=== PATIENT | male | born 1980 | race Caucasian/White ===

== ENCOUNTER 2023-10-19 08:14 | Outpatient (REF) | payer OTHER, SELFPAY ==
--- NOTE | ~2023-10-19 | US_ITS ---
EXAMINATION: US CHEST CLINICAL INFORMATION: Evaluate two immobile masses of chest next to sternum. COMPARISON: None available. TECHNIQUE: Real-time sonographic imaging of the anterior chest was performed in the area of concern by the manufacturing technologist. The acquired images have been uploaded into the electronic picture archive for review. FINDINGS: The manufacturing technologist has identified a three separate well-circumscribed foci in subcutaneous tissues that are nearly isoechoic compared to the superficial adipose tissue and have the appearance of lipomas. The sizes of the foci are as follows: 2 x 0.6 x 1.5 cm 1.2 x 0.5 x 1 cm 1.4 x 0.6 x 1.8 cm Otherwise, the examined soft tissues are unremarkable. No soft tissue edema or fluid collection. There are no hypervascular lesions within the examined tissues. US/US chest IMPRESSION: There are a few lipomas in subcutaneous tissue of the examined anterior chest wall.
== END 2023-10-19 08:15 | disposition home or self-care (01) ==
LOC: HO.UMASIMG 08:14
PROVIDERS: PCP Physician Assistant Medical; Visit Provider Physician Assistant Medical
DX: I10 Essential (primary) hypertension (principal)
CPT/HCPCS: 76604